=== PATIENT | female | born 1965 | race Two or more races ===

== ENCOUNTER 2020-09-21 12:45 | Outpatient (CLI) | payer OTHER | END 2020-09-21 13:20 | disposition home or self-care (01) | LOC: OFIC 805 12:45 | PROVIDERS: ATTEND Otolaryngology | DX: H69.81 Other specified disorders of Eustachian tube, right ear (principal); R42 Dizziness and giddiness; R09.81 Nasal congestion ==

== ENCOUNTER → 2020-10-12 | Outpatient (CLI) | payer OTHER | END | disposition home or self-care (01) | LOC: OFIC 805 14:39 | PROVIDERS: ATTEND Otolaryngology | DX: R09.81 Nasal congestion (principal); H69.83 Other specified disorders of Eustachian tube, bilateral ==